=== PATIENT | male | born 2000 ===

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

== ENCOUNTER 2021-04-27 21:11 | Emergency (ER) | payer OTHER ==
[~2021-04-27 21:11] MED LIST: BACITRACIN ZIN1 EAC1 TP; IBUPROFEN600 MG PO
== END 2021-04-27 22:00 | disposition left against medical advice (07) ==
LOC: ER1 21:11
DX: Z53.21 Procedure and treatment not carried out due to patient leaving prior to being seen by health care provider (principal)